=== PATIENT | male | born 1950 | race Caucasian/White ===

== ENCOUNTER 2023-10-07 13:18 | Inpatient (IN) | payer BC, OTHER ==
[2023-10-07] VITALS (29 sets, daily range): BP systolic 95–131; BP diastolic 54–93; PULSE 79–101; RESP 10–24; TEMP 97.6–98.7; O2SAT 98–100
[~2023-10-07] VITALS: Ht 175.3 cm; Wt 82.0 kg
[2023-10-07] MEDS: ETOMIDATE (2MG/ML) 20ML VIAL IV ONE (13:22)
[2023-10-07] MEDS: ROCURONIUM 10MG/ML 10ML VIAL IV ONE (13:22)
[2023-10-07] MEDS: MIDAZOLAM DRIP 50 mg/50mL 50 ML IV SCH (13:45)
[2023-10-07 13:55] LABS: Basophils # (auto) 0 10 ^3/uL (0-0.2); Basophils % (auto) 0.4 % (0.0-2.0); Eosinophils # (auto) 0.1 10 ^3/uL (0-0.8); Eosinophils % (auto) 0.5 % (0.0-7.0); Hematocrit 48.2 % (41.0-53.0); Lymphocytes # (auto) 3.6 10 ^3/uL (0.4-5.4); Lymphocytes % (auto) 32.2 % (10.0-50.0); Mean Corpuscular Hemoglobin 33.5 pg (28.0-32.0); Mean Corpuscular Hgb Conc. 33.1 g/dL (32.0-36.0); Mean Corpuscular Volume 101.4 fL (80.0-100.0); Monocytes # (auto) 0.5 10 ^3/uL (0-1.3); Monocytes % (auto) 4.5 % (0.0-12.0); Neutrophils % (auto) 62.4 % (37.0-80.0); Nucleated Red Blood Cells % 0.1 %; Red Blood Cells 4.76 10^6/uL (4.5-5.90); Red Cell Distribution Width 14.7 % (11.8-14.3); White Blood Cell 11.3 10^3/uL (4.4-10.8)
[2023-10-07 14:07] LABS: Alanine Aminotransferase 93 U/L (7-40); Albumin 3.6 g/dL (3.2-4.8); Alkaline Phosphatase 129 U/L (46-116); Anion Gap 13 (5-15); Aspartate Aminotransferase 253 U/L (13-40); BUN/Creatinine Ratio 9.8 (10.0-20.0); Bilirubin, Direct 0.9 mg/dL (<0.3); Bilirubin, Total 2.1 mg/dL (0.2-1.0); Blood Urea Nitrogen 11 mg/dL (9-23); Calcium 8.1 mg/dL (8.5-10.1); Carbon Dioxide 19 mmol/L (20-30); Chloride 108 mmol/L (98-107); Glucose 258 mg/dL (74-106); Sodium 140 mmol/L (136-145); Total Protein 5.8 g/dL (5.7-8.2)
[2023-10-07 14:13] LABS: Lactic Acid w/Reflex 7.7 mmol/L (0.4-2.0)
[2023-10-07 14:18] LABS: Lipase 71 U/L (12-53)
[2023-10-07] MEDS: SODIUM CHLORIDE 0.9% 2,100 ML IV ONE (14:34)
[2023-10-07] MEDS: VANCOMYCIN 1GM/200ML 200 ML IV ONE (14:35)
[2023-10-07] MEDS: PIPERACILLIN-TAZO 4.5GM 100 ML IV ONE (14:36)
[2023-10-07 14:47] LABS: Base Excess -7.7 mmol/L (-2.0-2.0)
[2023-10-07 14:49] LABS: INR 1.35 (0.9-1.15); Prothrombin Time 13.9 sec (9.3-11.8)
[2023-10-07] MEDS: IOHEXOL 350 MG/ML 100ML IJ ONE (15:30)
[2023-10-07] MEDS: PROPOFOL 100 ML IV SCH (16:00)
[2023-10-07] MEDS: HEPARIN SODIUM (PORCINE) 5000 UNITS/ML 1ML VIAL IV ONE (16:35)
[2023-10-07] MEDS: HEPARIN DRIP/D5W 100UNITS/ML 250 ML IV SCH (16:38)
[2023-10-07] MEDS ORDERED: DOCUSATE SOD 100 MG CAP PO PRN (16:45)
[2023-10-07] MEDS ORDERED: NITROGLYCERIN 0.4 MG SL TAB SL PRN (16:45)
[2023-10-07] MEDS ORDERED: VANCOMYCIN PER PHARMACY 0 MG IV SCH (16:45)
[2023-10-07] MEDS ORDERED: DEXTROSE (50%) 50ML SYRG IV PRN (16:45)
[2023-10-07] MEDS ORDERED: MORPHINE SULFATE INJ 2 MG/ml SYRG IV PRN (16:45)
[2023-10-07] MEDS ORDERED: ONDANSETRON HCL 4 MG/2 ML VIAL IV PRN (16:45)
[2023-10-07] MEDS: SODIUM CHLORIDE 0.9% 1,000 ML IV SCH (16:51)
[2023-10-07] MEDS: CEFEPIME 2GM/50ML NS 50 ML IV SCH (17:00)
[2023-10-07 17:57] LABS: Urine Bacteria NONE SEEN /hpf (None Seen); Urine Blood TRACE /uL (Negative); Urine Clarity HAZY (Clear); Urine Color Yellow (Yellow); Urine Mucus FEW (None Seen); Urine Protein, UAD 1+ (Negative); Urine Specific Gravity 1.017 (1.001-1.035); Urine Sperm PRESENT /hpf (None Seen); Urine WBC 15 /hpf (0 - 3); Urine pH 6.5 (5.0-8.0)
[2023-10-07] MEDS: ACCU-CHEK COMFORT CURVE STRIP VI SCH (18:00)
[2023-10-07] MEDS: InsuLIN REG 1unit/0.01ml Soln (100units/ml) SC SCH (18:00)
[2023-10-07] MEDS ORDERED: LORazepam 2MG/ML-1ML VIAL IV PRN (19:15)
[2023-10-07] MEDS ORDERED: CEFEPIME 1GM/ 50ML 50 ML IV SCH (22:00)
[2023-10-07] MEDS: metroNIDAZOLE 500MG/100ML 100 ML IV SCH (22:13)
[2023-10-08] VITALS (107 sets, daily range): BP systolic 81–185; BP diastolic 52–95; PULSE 62–89; RESP 18–44; TEMP 98.1–99.5; O2SAT 97–100
[2023-10-08 00:25] LABS: Anion Gap 7 (5-15); Carbon Dioxide 21 mmol/L (20-30)
[2023-10-08 00:41] LABS: BUN/Creatinine Ratio 11.3 (10.0-20.0); Glucose 132 mg/dL (74-106); Sodium 145 mmol/L (136-145)
[2023-10-08 00:42] LABS: Alkaline Phosphatase 90 U/L (46-116); Aspartate Aminotransferase 149 U/L (13-40); Blood Urea Nitrogen 11 mg/dL (9-23); Chloride 117 mmol/L (98-107); INR 1.51 (0.9-1.15); Potassium 3.3 mmol/L (3.5-5.1); Prothrombin Time 15.4 sec (9.3-11.8)
[2023-10-08 00:43] LABS: Alanine Aminotransferase 77 U/L (7-40); Albumin 2.7 g/dL (3.2-4.8); Calcium 6.8 mg/dL (8.7-10.4); Magnesium 1.2 mg/dL (1.6-2.6); Total Protein 4.6 g/dL (5.7-8.2)
[2023-10-08 01:29] LABS: Lactic Acid w/Reflex 2.3 mmol/L (0.4-2.0)
[2023-10-08] MEDS: CALCIUM GLUC 1,000mg/50ml-NS 50 ML IV ONE (01:36)
[2023-10-08] MEDS: MAGNESIUM SULFATE 1GM/100ML 100 ML IV SCH ×2 (02:08→16:58)
[2023-10-08] MEDS ORDERED: dilTIAZem 25 MG/5 ML VIAL IV ONE (03:00)
[2023-10-08] MEDS: POTASSIUM CHL 20MEQ/100ML 100 ML IV ONE (03:15)
[2023-10-08 04:12] LABS: Basophils # (auto) 0 10 ^3/uL (0-0.2); Basophils % (auto) 0.4 % (0.0-2.0); Eosinophils # (auto) 0 10 ^3/uL (0-0.8); Eosinophils % (auto) 0.1 % (0.0-7.0); Hematocrit 43.1 % (41.0-53.0); Hemoglobin 14.7 g/dL (13.5-17.5); Lymphocytes # (auto) 0.9 10 ^3/uL (0.4-5.4); Lymphocytes % (auto) 9.2 % (10.0-50.0); Mean Corpuscular Hemoglobin 33.7 pg (28.0-32.0); Mean Corpuscular Hgb Conc. 34.1 g/dL (32.0-36.0); Mean Corpuscular Volume 98.9 fL (80.0-100.0); Monocytes # (auto) 0.7 10 ^3/uL (0-1.3); Monocytes % (auto) 7.2 % (0.0-12.0); Neutrophils # (auto) 7.9 10 ^3/uL (1.6-8.6); Neutrophils % (auto) 83.1 % (37.0-80.0); Red Blood Cells 4.36 10^6/uL (4.5-5.90); Red Cell Distribution Width 14.4 % (11.8-14.3); White Blood Cell 9.5 10^3/uL (4.4-10.8)
[2023-10-08 04:27] LABS: Alanine Aminotransferase 79 U/L (7-40); Albumin 3.1 g/dL (3.2-4.8); Alkaline Phosphatase 103 U/L (46-116); Anion Gap 8 (5-15); Aspartate Aminotransferase 144 U/L (13-40); BUN/Creatinine Ratio 10.3 (10.0-20.0); Blood Urea Nitrogen 13 mg/dL (9-23); Calcium 8.5 mg/dL (8.7-10.4); Carbon Dioxide 21 mmol/L (20-30); Chloride 112 mmol/L (98-107); Glucose 171 mg/dL (74-106); Potassium 3.6 mmol/L (3.5-5.1); Sodium 141 mmol/L (136-145); Total Protein 5.4 g/dL (5.7-8.2)
[2023-10-08 05:12] LABS: Platelet Estimate Decreased
[2023-10-08 07:15] LABS: Base Excess -4.6 mmol/L (-2.0-2.0)
[2023-10-08 07:17] LABS: INR 1.26 (0.9-1.15); Partial Thromboplastin Time 41.3 SEC (24.5-34.5)
[2023-10-08 07:45] LABS: Magnesium 1.9 mg/dL (1.6-2.6)
[2023-10-08] MEDS: VANCOMYCIN 750mg/150ml 150 ML IV SCH (08:00)
[2023-10-08] MEDS: PANTOPRAZOLE 40 MG/10 ML VIAL INJ IV SCH (10:29)
[2023-10-08] MEDS: LACTULOSE 20Gm/30ML SOLN PO SCH (10:29)
[2023-10-08] MEDS: SACUBITRIL-VALSARTAN 24mg/26mg TAB PO SCH (10:29)
[2023-10-08] MEDS: EMPAGLIFLOZIN 10 MG TAB PO SCH (10:30)
[2023-10-08] MEDS: METOPROLOL TARTRATE 25 MG TAB PO SCH (10:31)
[2023-10-08] MEDS: SPIRONOLACTONE 25 MG TAB PO SCH (10:31)
[2023-10-08 10:43] LABS: Hepatitis B Surface Antigen Negative (Negative)
[2023-10-08 11:03] LABS: Hepatitis A Ab IgM Negative
[2023-10-08 11:04] LABS: Hepatitis B Core IgM Negative
[2023-10-08 11:05] LABS: Hepatitis C Antibody Negative (Negative)
[2023-10-08 13:48] LABS: Anion Gap 6 (5-15); Carbon Dioxide 23 mmol/L (20-30); Chloride 114 mmol/L (98-107); Sodium 143 mmol/L (136-145)
[2023-10-08 13:49] LABS: Calcium 8.4 mg/dL (8.7-10.4)
[2023-10-08 13:54] LABS: BUN/Creatinine Ratio 14.2 (10.0-20.0); Blood Urea Nitrogen 16 mg/dL (9-23); Glucose 105 mg/dL (74-106)
[2023-10-08 13:55] LABS: Magnesium 1.9 mg/dL (1.6-2.6)
[2023-10-08] MEDS: MAGNESIUM SULFATE 1GM/100ML 100 ML IV ONE (15:46)
[2023-10-08] MEDS: FOLIC ACID 1 MG, MULTIPLE VITAMIN 10 ML, MAGNESIUM SULF SDV 50% 8 MEQ, THIAMINE INJ 100... INJ SCH (18:02)
[2023-10-08] MEDS: LIDOCAINE 1% (LOCAL ANESTH.) PF 5ml SDV ID ONE (18:18)
[2023-10-08] MEDS: SODIUM CHLOR 0.9% PF (SALINE LOCK) 10ML VIAL/SYR IV SCH (21:43)
[2023-10-08] MEDS: hydrALAZINE HCL 20 MG/ML VL IV PRN (23:16)
[2023-10-09] VITALS (105 sets, daily range): BP systolic 99–190; BP diastolic 39–88; PULSE 54–107; RESP 17–35; TEMP 98.9–100.1; O2SAT 91–100
[2023-10-09 00:45] LABS: Chloride 115 mmol/L (98-107); Potassium 3.5 mmol/L (3.5-5.1); Sodium 140 mmol/L (136-145)
[2023-10-09 00:46] LABS: Anion Gap 5 (5-15); Carbon Dioxide 20 mmol/L (20-30)
[2023-10-09 00:47] LABS: Calcium 8.1 mg/dL (8.7-10.4)
[2023-10-09 00:51] LABS: BUN/Creatinine Ratio 8.8 (10.0-20.0); Blood Urea Nitrogen 9 mg/dL (9-23); Glucose 123 mg/dL (74-106)
[2023-10-09 00:52] LABS: Magnesium 2.3 mg/dL (1.6-2.6)
[2023-10-09] MEDS: AMIODARONE BOLUS KIT 100 ML IV ONE (01:52)
[2023-10-09] MEDS: AMIODARONE 450mg/250ml AE 250 ML IV SCH ×2 (02:12→10:07)
[2023-10-09 04:13] LABS: Basophils # (auto) 0 10 ^3/uL (0-0.2); Basophils % (auto) 0.3 % (0.0-2.0); Eosinophils # (auto) 0.1 10 ^3/uL (0-0.8); Eosinophils % (auto) 1.2 % (0.0-7.0); Hematocrit 45.9 % (41.0-53.0); Hemoglobin 15.4 g/dL (13.5-17.5); Lymphocytes % (auto) 9.5 % (10.0-50.0); Mean Corpuscular Hemoglobin 33.8 pg (28.0-32.0); Mean Corpuscular Hgb Conc. 33.6 g/dL (32.0-36.0); Mean Corpuscular Volume 100.5 fL (80.0-100.0); Monocytes # (auto) 0.7 10 ^3/uL (0-1.3); Monocytes % (auto) 6.6 % (0.0-12.0); Neutrophils # (auto) 8.3 10 ^3/uL (1.6-8.6); Neutrophils % (auto) 82.4 % (37.0-80.0); Nucleated Red Blood Cells % 0.1 %; Red Blood Cells 4.57 10^6/uL (4.5-5.90); Red Cell Distribution Width 15.1 % (11.8-14.3); White Blood Cell 10.1 10^3/uL (4.4-10.8)
[2023-10-09 04:31] LABS: Alanine Aminotransferase 56 U/L (7-40); Alkaline Phosphatase 94 U/L (46-116); Anion Gap 5 (5-15); Aspartate Aminotransferase 68 U/L (13-40); BUN/Creatinine Ratio 7.6 (10.0-20.0); Blood Urea Nitrogen 8 mg/dL (9-23); Calcium 8.2 mg/dL (8.7-10.4); Carbon Dioxide 20 mmol/L (20-30); Chloride 113 mmol/L (98-107); Glucose 100 mg/dL (74-106); Magnesium 2.5 mg/dL (1.6-2.6); Potassium 3.7 mmol/L (3.5-5.1); Sodium 138 mmol/L (136-145)
[2023-10-09 04:32] LABS: Bilirubin, Total 1.2 mg/dL (0.2-1.0); Total Protein 5.3 g/dL (5.7-8.2)
[2023-10-09 06:56] LABS: Base Excess -7.1 mmol/L (-2.0-2.0)
[2023-10-09] MEDS: VANCOMYCIN 1GM/200ML 200 ML IV SCH (13:28)
[2023-10-09] MEDS: ENOXAPARIN SOD 40 MG/0.4 ML SYRINGE SC SCH (17:04)
[2023-10-09] MEDS: POTASSIUM EFFERVESENT TAB 25 MEQ GT ONE (17:11)
[2023-10-09] MEDS ORDERED: ACETAMINOPHEN 650 mg PER 20.3 mL UD GT PRN (19:45)
[2023-10-10] VITALS (105 sets, daily range): BP systolic 106–182; BP diastolic 46–88; PULSE 48–67; RESP 14–59; TEMP 98.6–99.9; O2SAT 87–100
[2023-10-10 04:21] LABS: Basophils # (auto) 0 10 ^3/uL (0-0.2); Basophils % (auto) 0.4 % (0.0-2.0); Eosinophils # (auto) 0.2 10 ^3/uL (0-0.8); Eosinophils % (auto) 1.9 % (0.0-7.0); Hematocrit 44.7 % (41.0-53.0); Hemoglobin 14.8 g/dL (13.5-17.5); Lymphocytes % (auto) 11.1 % (10.0-50.0); Mean Corpuscular Hemoglobin 33.2 pg (28.0-32.0); Mean Corpuscular Hgb Conc. 33.2 g/dL (32.0-36.0); Monocytes % (auto) 10.7 % (0.0-12.0); Neutrophils # (auto) 6.9 10 ^3/uL (1.6-8.6); Neutrophils % (auto) 75.9 % (37.0-80.0); Red Blood Cells 4.47 10^6/uL (4.5-5.90); Red Cell Distribution Width 15.2 % (11.8-14.3); White Blood Cell 9.1 10^3/uL (4.4-10.8)
[2023-10-10 04:32] LABS: Anion Gap 5 (5-15); Calcium 8.1 mg/dL (8.7-10.4); Carbon Dioxide 20 mmol/L (20-30); Chloride 111 mmol/L (98-107); Potassium 4.2 mmol/L (3.5-5.1); Sodium 136 mmol/L (136-145)
[2023-10-10 04:38] LABS: BUN/Creatinine Ratio 8.7 (10.0-20.0); Blood Urea Nitrogen 9 mg/dL (9-23); Glucose 110 mg/dL (74-106)
[2023-10-10 04:39] LABS: Magnesium 2.4 mg/dL (1.6-2.6)
[2023-10-10 07:24] LABS: Base Excess -6.9 mmol/L (-2.0-2.0)
[2023-10-11] VITALS (112 sets, daily range): BP systolic 114–168; BP diastolic 40–80; PULSE 49–93; RESP 14–30; TEMP 97.8–99.6; O2SAT 85–100
[2023-10-11 04:06] LABS: Chloride 111 mmol/L (98-107); Potassium 4.2 mmol/L (3.5-5.1); Sodium 136 mmol/L (136-145)
[2023-10-11 04:07] LABS: Anion Gap 5 (5-15); Calcium 8.1 mg/dL (8.5-10.1); Carbon Dioxide 20 mmol/L (20-30)
[2023-10-11 04:08] LABS: Basophils # (auto) 0 10 ^3/uL (0-0.2); Basophils % (auto) 0.3 % (0.0-2.0); Eosinophils # (auto) 0.2 10 ^3/uL (0-0.8); Eosinophils % (auto) 1.8 % (0.0-7.0); Hematocrit 45.7 % (41.0-53.0); Hemoglobin 15.2 g/dL (13.5-17.5); Lymphocytes # (auto) 0.9 10 ^3/uL (0.4-5.4); Lymphocytes % (auto) 9.6 % (10.0-50.0); Mean Corpuscular Hemoglobin 32.7 pg (28.0-32.0); Mean Corpuscular Hgb Conc. 33.4 g/dL (32.0-36.0); Monocytes # (auto) 1.5 10 ^3/uL (0-1.3); Monocytes % (auto) 15.7 % (0.0-12.0); Neutrophils % (auto) 72.6 % (37.0-80.0); Nucleated Red Blood Cells % 0.4 %; Red Blood Cells 4.66 10^6/uL (4.5-5.90); Red Cell Distribution Width 15.6 % (11.8-14.3); White Blood Cell 9.6 10^3/uL (4.4-10.8)
[2023-10-11 04:12] LABS: BUN/Creatinine Ratio 10.6 (10.0-20.0); Blood Urea Nitrogen 11 mg/dL (9-23); Glucose 113 mg/dL (74-106)
[2023-10-12] VITALS (114 sets, daily range): BP systolic 99–185; BP diastolic 35–78; PULSE 61–100; RESP 13–40; TEMP 97.2–99.1; O2SAT 95–100
[2023-10-12 04:29] LABS: Basophils # (auto) 0.1 10 ^3/uL (0-0.2); Basophils % (auto) 0.5 % (0.0-2.0); Eosinophils # (auto) 0.2 10 ^3/uL (0-0.8); Eosinophils % (auto) 1.4 % (0.0-7.0); Hemoglobin 17.1 g/dL (13.5-17.5); Lymphocytes # (auto) 1.3 10 ^3/uL (0.4-5.4); Lymphocytes % (auto) 11.3 % (10.0-50.0); Mean Corpuscular Hemoglobin 33.4 pg (28.0-32.0); Mean Corpuscular Hgb Conc. 33.5 g/dL (32.0-36.0); Mean Corpuscular Volume 99.8 fL (80.0-100.0); Monocytes # (auto) 2.1 10 ^3/uL (0-1.3); Monocytes % (auto) 17.9 % (0.0-12.0); Neutrophils % (auto) 68.9 % (37.0-80.0); Nucleated Red Blood Cells % 0.2 %; Red Blood Cells 5.11 10^6/uL (4.5-5.90); Red Cell Distribution Width 15.1 % (11.8-14.3); White Blood Cell 11.7 10^3/uL (4.4-10.8)
[2023-10-12 05:28] LABS: Chloride 112 mmol/L (98-107); Potassium 4.3 mmol/L (3.5-5.1); Sodium 137 mmol/L (136-145)
[2023-10-12 05:29] LABS: Anion Gap 9 (5-15); Calcium 8.6 mg/dL (8.7-10.4); Carbon Dioxide 16 mmol/L (20-30)
[2023-10-12 05:34] LABS: BUN/Creatinine Ratio 10.5 (10.0-20.0); Blood Urea Nitrogen 9 mg/dL (9-23); Glucose 126 mg/dL (74-106)
[2023-10-12 06:39] LABS: Base Excess -6.6 mmol/L (-2.0-2.0)
[2023-10-12] MEDS: CEFEPIME 2GM/50ML NS 50 ML IV SCH (14:21)
[2023-10-12] MEDS: AMIODARONE HCL 200 MG TAB GT ONE (16:57)
[2023-10-12 19:09] LABS: Potassium 4.4 mmol/L (3.5-5.1)
[2023-10-12 19:29] LABS: Magnesium 2.2 mg/dL (1.6-2.6)
[2023-10-12] MEDS: AMIODARONE 450mg/250ml AE 250 ML IV SCH (20:59)
[2023-10-13] VITALS (106 sets, daily range): BP systolic 93–171; BP diastolic 52–87; PULSE 60–79; RESP 14–26; TEMP 98.5–99.4; O2SAT 96–100
[2023-10-13] MEDS: AMIODARONE 450mg/250ml AE 250 ML IV SCH (03:00)
[2023-10-13 04:40] LABS: Basophils # (auto) 0.1 10 ^3/uL (0-0.2); Basophils % (auto) 0.6 % (0.0-2.0); Eosinophils # (auto) 0.2 10 ^3/uL (0-0.8); Hematocrit 48.4 % (41.0-53.0); Hemoglobin 16.1 g/dL (13.5-17.5); Lymphocytes # (auto) 1.6 10 ^3/uL (0.4-5.4); Lymphocytes % (auto) 15.5 % (10.0-50.0); Mean Corpuscular Hemoglobin 33.4 pg (28.0-32.0); Mean Corpuscular Hgb Conc. 33.2 g/dL (32.0-36.0); Mean Corpuscular Volume 100.6 fL (80.0-100.0); Monocytes # (auto) 1.9 10 ^3/uL (0-1.3); Monocytes % (auto) 17.9 % (0.0-12.0); Neutrophils # (auto) 6.7 10 ^3/uL (1.6-8.6); Nucleated Red Blood Cells % 0.4 %; Red Blood Cells 4.81 10^6/uL (4.5-5.90); White Blood Cell 10.5 10^3/uL (4.4-10.8)
[2023-10-13 05:02] LABS: Anion Gap 10 (5-15); Calcium 8.3 mg/dL (8.7-10.4); Carbon Dioxide 16 mmol/L (20-30); Chloride 112 mmol/L (98-107); Potassium 4.5 mmol/L (3.5-5.1); Sodium 138 mmol/L (136-145)
[2023-10-13 05:08] LABS: Glucose 129 mg/dL (74-106)
[2023-10-13 05:29] LABS: BUN/Creatinine Ratio 12.1 (10.0-20.0); Blood Urea Nitrogen 11 mg/dL (9-23)
[2023-10-13] MEDS: Jevity 1.2 Cal/Fiber 1 Liter GT SCH (06:00)
[2023-10-13 07:07] LABS: Base Excess -4.6 mmol/L (-2.0-2.0)
[2023-10-13] MEDS: AMIODARONE HCL 200 MG TAB PO SCH (09:18)
[2023-10-14] VITALS (104 sets, daily range): BP systolic 88–174; BP diastolic 49–108; PULSE 63–93; RESP 12–32; TEMP 98.2–98.8; O2SAT 96–100
[2023-10-14 03:43] LABS: Basophils # (auto) 0.1 10 ^3/uL (0-0.2); Basophils % (auto) 0.8 % (0.0-2.0); Eosinophils # (auto) 0.3 10 ^3/uL (0-0.8); Eosinophils % (auto) 2.5 % (0.0-7.0); Hematocrit 46.6 % (41.0-53.0); Hemoglobin 15.5 g/dL (13.5-17.5); Lymphocytes # (auto) 1.3 10 ^3/uL (0.4-5.4); Lymphocytes % (auto) 13.2 % (10.0-50.0); Mean Corpuscular Hemoglobin 33.1 pg (28.0-32.0); Mean Corpuscular Hgb Conc. 33.3 g/dL (32.0-36.0); Mean Corpuscular Volume 99.5 fL (80.0-100.0); Monocytes # (auto) 1.5 10 ^3/uL (0-1.3); Neutrophils % (auto) 68.5 % (37.0-80.0); Red Blood Cells 4.68 10^6/uL (4.5-5.90); White Blood Cell 10.1 10^3/uL (4.4-10.8)
[2023-10-14 04:01] LABS: Alanine Aminotransferase 91 U/L (7-40); Albumin 3.2 g/dL (3.2-4.8); Alkaline Phosphatase 154 U/L (46-116); Anion Gap 8 (5-15); Aspartate Aminotransferase 86 U/L (13-40); BUN/Creatinine Ratio 14.4 (10.0-20.0); Bilirubin, Total 0.8 mg/dL (0.2-1.0); Blood Urea Nitrogen 13 mg/dL (9-23); Calcium 8.8 mg/dL (8.7-10.4); Carbon Dioxide 19 mmol/L (20-30); Chloride 112 mmol/L (98-107); Glucose 149 mg/dL (74-106); Potassium 3.8 mmol/L (3.5-5.1); Sodium 139 mmol/L (136-145); Total Protein 5.8 g/dL (5.7-8.2)
[2023-10-14 07:01] LABS: Base Excess -5.2 mmol/L (-2.0-2.0)
[2023-10-14] MEDS: POTASSIUM CHL 20MEQ/100ML 100 ML IV ONE (11:54)
[2023-10-14] MEDS: PROPOFOL 100 ML IV SCH (18:57)
[2023-10-14] MEDS: NYSTATIN TOPICAL POWDER 15GM TOP SCH (22:49)
[2023-10-15] VITALS (73 sets, daily range): BP systolic 104–155; BP diastolic 53–105; PULSE 58–89; RESP 13–27; TEMP 98.1–98.5; O2SAT 89–100
[2023-10-15 04:40] LABS: Basophils # (auto) 0 10 ^3/uL (0-0.2); Basophils % (auto) 0.3 % (0.0-2.0); Eosinophils # (auto) 0.3 10 ^3/uL (0-0.8); Eosinophils % (auto) 2.8 % (0.0-7.0); Hematocrit 48.4 % (41.0-53.0); Hemoglobin 15.9 g/dL (13.5-17.5); Lymphocytes # (auto) 1.4 10 ^3/uL (0.4-5.4); Lymphocytes % (auto) 14.5 % (10.0-50.0); Mean Corpuscular Hemoglobin 33.4 pg (28.0-32.0); Mean Corpuscular Hgb Conc. 32.8 g/dL (32.0-36.0); Monocytes # (auto) 1.5 10 ^3/uL (0-1.3); Neutrophils # (auto) 6.6 10 ^3/uL (1.6-8.6); Neutrophils % (auto) 67.4 % (37.0-80.0); Red Blood Cells 4.75 10^6/uL (4.5-5.90); Red Cell Distribution Width 15.9 % (11.8-14.3); White Blood Cell 9.9 10^3/uL (4.4-10.8)
[2023-10-15 05:07] LABS: Alanine Aminotransferase 108 U/L (7-40); Albumin 3.3 g/dL (3.2-4.8); Alkaline Phosphatase 168 U/L (46-116); Anion Gap 6 (5-15); Aspartate Aminotransferase 90 U/L (13-40); BUN/Creatinine Ratio 13.2 (10.0-20.0); Bilirubin, Total 0.7 mg/dL (0.2-1.0); Blood Urea Nitrogen 12 mg/dL (9-23); Carbon Dioxide 19 mmol/L (20-30); Chloride 113 mmol/L (98-107); Glucose 123 mg/dL (74-106); Potassium 4.4 mmol/L (3.5-5.1); Sodium 138 mmol/L (136-145); Total Protein 5.9 g/dL (5.7-8.2)
[2023-10-15 07:10] LABS: Base Excess -6.9 mmol/L (-2.0-2.0)
[2023-10-15] MEDS: MORPHINE SULFATE INJ 2 MG/ml SYRG IV PRN (13:17)
[2023-10-15] MEDS: LORazepam 2MG/ML-1ML VIAL IV PRN (13:17)
[2023-10-15] MEDS: GLYCOPYRROLATE 0.2 MG/ML 1ML VIAL IV ONE (14:10)
[2023-10-16] VITALS (16 sets, daily range): BP systolic 112–144; BP diastolic 69–84; PULSE 66–89; RESP 16–24; TEMP 98.5–99.8; O2SAT 89–98
[2023-10-16] MEDS: GLYCOPYRROLATE 0.2 MG/ML 1ML VIAL IV PRN (10:57)
[2023-10-16] MEDS: MORPHINE SULFATE INJ 2 MG/ml SYRG IV PRN (16:33)
[2023-10-17] VITALS (9 sets, daily range): BP systolic 106–170; BP diastolic 73–89; PULSE 60–80; RESP 16–20; TEMP 97.1–98.6; O2SAT 96–98
[2023-10-18 01:00] VITALS: BP 149/90; PULSE 73; TEMP 98.9; O2SAT 97
[2023-10-18 05:00] VITALS: BP 149/75; PULSE 70; RESP 18; TEMP 98.4; O2SAT 98
[2023-10-18 08:00] VITALS: PULSE 18; PULSE 68; RESP 17; O2SAT 98
[2023-10-18 09:00] VITALS: BP 153/72; PULSE 55; RESP 17; TEMP 98.4; O2SAT 96
[2023-10-18 10:00] VITALS: PULSE 64
[2023-10-18 11:30] VITALS: BP 165/81; PULSE 61; TEMP 36.9
== END 2023-10-18 13:00 | disposition hospice, inpatient (51) | DRG 870 ==
LOC: ER 13:18 → EDBD 13:18 → TELE 16:43 → ICU WEST 18:24 → TELE-CENTR 10-16 13:00
PROVIDERS: ADMIT Nurse Practitioner Family; ATTEND Internal Medicine
PROC: 5A1955Z Respiratory Ventilation, Greater than 96 Consecutive Hours (ICD-10-PCS; 2023-10-07)
PROC: 0BH17EZ Insertion of Endotracheal Airway into Trachea, Via Natural or Artificial Opening (ICD-10-PCS; 2023-10-07)
PROC: 02HV33Z Insertion of Infusion Device into Superior Vena Cava, Percutaneous Approach (ICD-10-PCS; principal; 2023-10-08)
PROC: B548ZZA Ultrasonography of Superior Vena Cava, Guidance (ICD-10-PCS; 2023-10-08)
DX: A41.3 Sepsis due to Hemophilus influenzae (principal); J14 Pneumonia due to Hemophilus influenzae; G93.41 Metabolic encephalopathy; I46.9 Cardiac arrest, cause unspecified; I21.4 Non-ST elevation (NSTEMI) myocardial infarction; J96.01 Acute respiratory failure with hypoxia; J96.02 Acute respiratory failure with hypercapnia; R65.21 Severe sepsis with septic shock; I49.01 Ventricular fibrillation; R40.20 Unspecified coma; I50.43 Acute on chronic combined systolic (congestive) and diastolic (congestive) heart failure; E87.20 Acidosis, unspecified; G93.1 Anoxic brain damage, not elsewhere classified; F10.139 Alcohol abuse with withdrawal, unspecified; N39.0 Urinary tract infection, site not specified; D68.9 Coagulation defect, unspecified; I47.20 Ventricular tachycardia, unspecified; Y90.9 Presence of alcohol in blood, level not specified; R74.01 Elevation of levels of liver transaminase levels; K70.30 Alcoholic cirrhosis of liver without ascites; D69.59 Other secondary thrombocytopenia; I25.10 Atherosclerotic heart disease of native coronary artery without angina pectoris; I44.7 Left bundle-branch block, unspecified; I11.0 Hypertensive heart disease with heart failure; M06.9 Rheumatoid arthritis, unspecified; Z87.891 Personal history of nicotine dependence; I25.2 Old myocardial infarction; Z51.5 Encounter for palliative care
CPT/HCPCS: 31500; 36415; 36569; 36600; 70450; 70551; 71045; 71260; 74177; 76705; 80048; 80053; 80061; 80074; 80076; 80202; 81001; 82140; 82565; 82805; 82962; 83036; 83605; 83690; 83735; 83880; 84132; 84443; 84484; 85025; 85048; 85610; 85730; 87040; 87070; 87077; 87081; 87086; 87205; 93005; 93306; 94002; 94003; 95819; 96365; 96367; 96368; 99291; C9113; G0378; J0692; J2250; J2543; J2704; J3480; J3490